=== PATIENT | male | born 1935 | race Caucasian/White ===

== ENCOUNTER 2017-01-04 09:51 | Inpatient (IN) | payer MEDICARE, OTHER ==
[2017-01-04] VITALS (25 sets, daily range): BP systolic 53–161; BP diastolic 24–99; BMI 29.4
[~2017-01-04] VITALS: Ht 190.5 cm; Wt 108.2 kg
[2017-01-04 10:21] LABS: BASOPHILS 0.3 % (0-2); EOSINOPHILS 0.8 % (0-7); HEMATOCRIT 22.3 % (42.0-54.0); IMMATURE GRANULOCYTES 0.5 % (0-5); LYMPHOCYTES 14.5 % (15-50); MCH 33.9 pg (26.0-34.0); MCHC 33.2 g/dL (31.0-37.0); MCV 102.3 fL (80.0-100.0); MEAN PLATELET VOLUME 10.9 fL (7.4-10.4); MONOCYTES 7.5 % (2-11); NEUTROPHILS 76.4 % (40-80); RBC 2.18 10x6/uL (4.20-6.10); RDW 13.3 % (11.5-14.5); WBC 9.3 10x3/uL (4.8-10.8)
[2017-01-04 10:32] LABS: HEMOGLOBIN 7.4 g/dL (13.5-17.5); PLATELET COUNT 180 10x3/uL (130-400)
[2017-01-04 10:35] LABS: APTT 45.3 SECONDS (22.8-39.4); INR 1.76 (0.85-1.17); PROTIME 20.5 SECONDS (11.6-15.0)
[2017-01-04 10:40] LABS: ALBUMIN 2.7 g/dL (3.4-5.0); ANION GAP 13.5 mmol/L (8-16); BILIRUBIN - TOTAL 0.5 mg/dL (0.2-1.3); CALCIUM 8.2 mg/dL (8.5-10.1); CARBON DIOXIDE 21.1 mmol/L (21.0-32.0); CREATININE - SERUM 2.2 mg/dL (0.6-1.3); POTASSIUM - SERUM 5.6 mmol/L (3.5-5.1)
[2017-01-04 14:49] LABS: BASOPHILS 0.1 % (0-2); EOSINOPHILS 0.1 % (0-7); HEMATOCRIT 20.3 % (42.0-54.0); IMMATURE GRANULOCYTES 0.7 % (0-5); LYMPHOCYTES 22.7 % (15-50); MCH 32.1 pg (26.0-34.0); MCV 103.6 fL (80.0-100.0); MEAN PLATELET VOLUME 10.9 fL (7.4-10.4); MONOCYTES 4.2 % (2-11); NEUTROPHILS 72.2 % (40-80); RDW 14.9 % (11.5-14.5); WBC 11.2 10x3/uL (4.8-10.8)
[2017-01-04 14:51] LABS: HEMOGLOBIN 6.3 g/dL (13.5-17.5); PLATELET COUNT 138 10x3/uL (130-400); RBC 1.96 10x6/uL (4.20-6.10)
--- NOTE | 2017-01-04 15:04 | NUR ---
3 CC EPINEPHRINE INJECTED INTO DUODENAL ULCER DURING EGD
[2017-01-04 15:58] LABS: BASOPHILS 0.1 % (0-2); EOSINOPHILS 0.3 % (0-7); IMMATURE GRANULOCYTES 0.8 % (0-5); LYMPHOCYTES 16.4 % (15-50); MCH 32.4 pg (26.0-34.0); MCHC 33.2 g/dL (31.0-37.0); MEAN PLATELET VOLUME 11.2 fL (7.4-10.4); MONOCYTES 9.4 % (2-11); RDW 14.6 % (11.5-14.5)
[2017-01-04 15:59] LABS: HEMATOCRIT 27.7 % (42.0-54.0); HEMOGLOBIN 9.2 g/dL (13.5-17.5); MCV 97.5 fL (80.0-100.0); PLATELET COUNT 176 10x3/uL (130-400); RBC 2.84 10x6/uL (4.20-6.10); WBC 18.9 10x3/uL (4.8-10.8)
[2017-01-04 16:07] LABS: APTT 47.7 SECONDS (22.8-39.4); PROTIME 22.7 SECONDS (11.6-15.0)
--- NOTE | 2017-01-04 16:16 | NUR ---
1616 REC'D PT AT 1406- PT ARRIVED TO ICU, VERY PALE, ANSWERS QUESTIONS. ALL MONITORING EQUIPMENT ATTACHED AND ALARMS SET. PT HYPOTENSIVE, 1ST UNIT PRBC INCREASED RATE, NS BOLUS 999CC/HR BEGAN AND PAGED DR SEGUNDO. PT WENT UNRESPONSIVE. CODE BLUE CALLED. ACLS BEGAN WITH BVM 100% O2. SPONTANEOUS RESP AND PULSE PRESENT AFTER FEW COMPRESSIONS AND 2MIN BVM. GI LAB TEAM CALLED AND SURGERY CALLED. DR SEGUNDO AT . PT INTUBATED BY ANESTHESIA AND UGI PROCEDURE IN PROGRESS. 4U PRBC GIVEN AND 1 UNIT PLATELETTES GIVEN. PT CONTINUES TO BE HYPOTENSIVE BUT TRASHING AROUND, VASOPRESSIN BEGAN AND DIPROVAN TITRATED.
--- NOTE | 2017-01-04 16:34 | NUR ---
IN ICU. PT'S VSS AND RESTING QUIETLY. DR SEGUNDO AND DR GREGORY SPOKE TO PT'S .
[2017-01-04 17:49] LABS: HEMATOCRIT 28.2 % (42.0-54.0); HEMOGLOBIN 9.4 g/dL (13.5-17.5)
[2017-01-04 18:29] LABS: CKMB 2.7 U/L (0.0-3.6); CREATINE KINASE 18 UL (21-232); TROPONIN-I 0.047 ng/mL (0.000-0.060)
--- NOTE | 2017-01-04 18:52 | NUR ---
L CHEST CVL PLACED BY DR LOUIS, CONCENTS BY PT'S . PT TEMP 96.0, BEAR HUGGER PLACED TO WARM. CXR COMPLETE.
--- NOTE | 2017-01-04 19:10 | NUR ---
Received patient sedated in bed on vent, assessment completed per flowsheet. Patient opens eyes and withdraws from pain stimuli, moves extremities. Eyes PERRLA @ 4mm with brisk response, sclera is reddened. ETT 8.0 @ 25cm, OGT to LIWS. S1/S2 noted NSR on telemetry with HR 74, rhythmic and regular. Lung sounds clear bilateral upper and mid with diminished lower, Vent settings A/C R-20 V-600 40% P-7 with O2 sat 99%. Abdomen is round and soft with bowel sounds hypoactive x4, non-tender. Elmore secured in place with clear yellow urine noted in collection, dark blood from rectum noted on pad. Full ROM all extremities with slight weakness noted, all pulses palpable with cap refill < 3 sec. L subclavian CVL noted, patent with fluids infusing. 20g PIV noted L hand/L AC patent with fluids infusing, 20g PIV R hand/R Forearm patent and saline locked. Unable to assess pain at this time. Oral care/suctioning provided, patient repositioned for comfort. No further needs at this time, all VSS and will continue to monitor.
--- NOTE | 2017-01-04 21:00 | NUR ---
No visitors at this time, patient sedated in bed on vent. Full bed bath/linen change performed, small dark red blood noted from rectum. Oral care/suctioning provided, patient repostioned. No further needs at this time, all VSS and will continue to monitor.
--- NOTE | 2017-01-04 21:30 | NUR ---
CVP set up, zeroed with good reading.
--- NOTE | 2017-01-04 22:15 | NUR ---
Spoke to Ghazal (Daughter) via telephone, updated on patient status. All questions answered to satisfaction, no further questions at this time.
[2017-01-04 22:52] LABS: HEMATOCRIT 23.9 % (42.0-54.0); HEMOGLOBIN 8.4 g/dL (13.5-17.5)
--- NOTE | 2017-01-04 23:15 | NUR ---
!ST UNIT PRBC STARTED INFUSING, WILL MONITOR FOR S/S OF REACTION.
[2017-01-05] VITALS (35 sets, daily range): BP systolic 87–142; BP diastolic 46–75; Ht 190.5 cm; Wt 108.2 kg
[2017-01-05 00:33] LABS: CKMB 1.4 U/L (0.0-3.6); CREATINE KINASE 70 UL (21-232)
[2017-01-05 00:34] LABS: TROPONIN-I 0.089 ng/mL (0.000-0.060)
--- NOTE | 2017-01-05 01:00 | NUR ---
1st Unit PRBC's completed. Patient afebrile, BP 130/57 with HR 67. No s/s of transfusion reaction at this time.
--- NOTE | 2017-01-05 01:15 | NUR ---
2nd Unit PRBC's started infusing, will monitor for s/s of transfusion reaction.
--- NOTE | 2017-01-05 03:00 | NUR ---
2nd Unit PRBC's completed, HR 98 and B/P 111/56. No s/s of transfusion reaction, will continue to monitor.
--- NOTE | 2017-01-05 03:10 | NUR ---
Reassessment completed per flowsheet, patient sedated in bed on vent. Patient opens eyes spontaneously and follows commands, eyes PERRLA @ 4mm with brisk response. S1/S2 noted NSR on telemetry with HR 98, rhythmic and regular. Vent settings unchanged from previous assessment, lung sounds clear bilateral upper and mid with diminished lower. All pulses palpable with cap refill < 3 sec, skin cool/dry to touch. Denies pain or other needs at this time, all VSS and will continue to monitor.
--- NOTE | 2017-01-05 05:00 | NUR ---
Patient resting in bed with eyes closed, Vent settings remain unchanged from previous assesment. Patient denies pain or other needs at this time, all VSS and will continue to monitor.
[2017-01-05 05:07] LABS: BASOPHILS 0.1 % (0-2); EOSINOPHILS 0 % (0-7); HEMATOCRIT 27.6 % (42.0-54.0); HEMOGLOBIN 9.8 g/dL (13.5-17.5); IMMATURE GRANULOCYTES 0.3 % (0-5); MCH 32.8 pg (26.0-34.0); MCHC 35.5 g/dL (31.0-37.0); MEAN PLATELET VOLUME 11.2 fL (7.4-10.4); MONOCYTES 4.8 % (2-11); NEUTROPHILS 88.8 % (40-80); RBC 2.99 10x6/uL (4.20-6.10); RDW 14.9 % (11.5-14.5)
[2017-01-05 05:08] LABS: MCV 92.3 fL (80.0-100.0); PLATELET COUNT 123 10x3/uL (130-400); WBC 11.5 10x3/uL (4.8-10.8)
[2017-01-05 05:09] LABS: INR 1.61 (0.85-1.17); PROTIME 19.1 SECONDS (11.6-15.0)
[2017-01-05 05:10] LABS: APTT 40.2 SECONDS (22.8-39.4)
--- NOTE | 2017-01-05 05:30 | NUR ---
H&H results returned, 2 units to be infused per orders. 1st unit PRBC's infusing, will monitor for s/s of transfusion reaction.
[2017-01-05 05:40] LABS: ALBUMIN 2.4 g/dL (3.4-5.0); ALKALINE PHOSPHATASE 42 U/L (46-116); ALT (SGPT) 20 U/L (10-68); AMYLASE - SERUM 91 U/L (25-115); BILIRUBIN - TOTAL 1.12 mg/dL (0.2-1.3); CHLORIDE - SERUM 109 mmol/L (98-107); CKMB 1.9 U/L (0.0-3.6); CREATINE KINASE 86 UL (21-232); CREATININE - SERUM 2.4 mg/dL (0.6-1.3); LIPASE 56 U/L (73-393); MAGNESIUM - SERUM 1.5 mg/dL (1.8-2.4); PHOSPHOROUS 4.2 mg/dL (2.5-4.9); POTASSIUM - SERUM 4.4 mmol/L (3.5-5.1); PROTEIN - SERUM 4.5 g/dL (6.4-8.2); SODIUM 139 mmol/L (136-145); THYROID STIMULATING HORMONE 0.65 uIU/mL (0.36-3.74); UREA NITROGEN 68 mg/dL (7-18); eGFR NON AFRICAN AMERICAN 28 mL/min (90-120)
[2017-01-05 05:42] LABS: CALC OSMOLALITY 307 mosm/kg (275-300); CARBON DIOXIDE 13.7 mmol/L (21.0-32.0); GLUCOSE 284 mg/dL (74-106); TROPONIN-I 0.255 ng/mL (0.000-0.060)
--- NOTE | 2017-01-05 07:00 | NUR ---
2nd unit PRBC completed, patient HR 80 and B/P 106/52. No s/s of transfusion reaction at this time, all VSS and will continue to monitor.
--- NOTE | 2017-01-05 08:19 | NUR ---
VERSED GIVEN FOR SEDATION PATIENT WAS VERY RESTLESS IN BED. VS WITHIN NORMAL LIMITS AT THIS TIME. SPO2 99%.
--- NOTE | 2017-01-05 10:10 | NUR ---
DIPRIVAN INCREASED TO 80MCG/KG/MIN. PATIENT IS RESTLESS IN BED AND AROUSING TO VOICE.
--- NOTE | 2017-01-05 10:17 | NUR ---
DR. SEGUNDO CALLED FOR UPDATE ON PATIENT. DR. GREGORY AND DR. QUEEN HERE IN TO SEE PATIENT.
[2017-01-05 10:51] LABS: HEMATOCRIT 29.2 % (42.0-54.0); HEMOGLOBIN 10.3 g/dL (13.5-17.5)
--- NOTE | 2017-01-05 11:10 | NUR ---
HAND ROLLER IN ROOM FOR ECHO AT THIS TIME.
--- NOTE | 2017-01-05 13:14 | NUR ---
TOOK PATIENTS [place] [employer] HOME WITH HER. PAPER SIGNED.
--- NOTE | 2017-01-05 15:00 | NUR ---
JESUS CARE COMPLETE. PATIENT IS RELAXED AND AROUSES EASILY TO VERBAL STIMULI.
[2017-01-05 16:30] LABS: HEMATOCRIT 28.4 % (42.0-54.0)
--- NOTE | 2017-01-05 17:10 | NUR ---
PATIENT HAD SMALL LEAKAGE OF SEROUS FLUID AND DARK RED CONTENT INCONTENT BM.
--- NOTE | 2017-01-05 19:10 | NUR ---
Received patient sedated in bed on vent, assessment completed per flowsheet. Patient opens eyes and withdraws from pain stimuli, sedated. Eyes PERRLA @ 4mm with brisk response, sclera is reddened. ETT 8.0 @ 25cm, OGT to LIWS secured. S1/S2 noted NSR on telemetry with HR 81, rhythmic and regular. Lung sounds clear bilateral upper and mid with diminished lower, Vent settings SIMV R-16 V-600 30% P-5 PS-15. Abdomen is round and soft with bowel sounds hypoactive x4, non-tender. Elmore secured in place with clear yellow urine noted. Passive ROM all extremities with weakness noted, all pulses palpable with cap refill < 3 sec. L subclavian CVL dressing CDI, NS @ 75ml/hr / Diprivan @ 80mcg/kg/min / Protonix @ 10ml/hr infusing. CVP connected, 7mm/hg and zeroed. Oral care/suctioning provided, patient repositioned for comfort. No further needs at this time, all VSS and will continue to monitor.
--- NOTE | 2017-01-05 21:00 | NUR ---
No visitors at this time, all HS meds given without difficulty. Oral care/suctioning provided, patient repositioned for comfort. No further needs at this time, all VSS and will continue to monitor.
--- NOTE | 2017-01-05 22:15 | NUR ---
Spoke to Ghazal (daughter) via phone, updated on patient status. All questions answered to satisfaction, no further questions at this time.
[2017-01-05 22:45] LABS: HEMATOCRIT 26.9 % (42.0-54.0); HEMOGLOBIN 9.4 g/dL (13.5-17.5)
--- NOTE | 2017-01-05 23:00 | NUR ---
Reassessment completed per flowsheet, patient laying in bed sedated on vent. Eyes PERRLA @ 4mm with brisk response, sclera is white. S1/S2 noted NSR on telemetry with HR 84, rhythmic and regular. Lung sounds clear bilateral upper and mid with diminished lower, Vent settings unchanged from previous assessment with O2 sat 99%. All pulses palpable with cap refill < 3 sec, skin warm/dry to touch. Oral care/suctioning provided, patient repositioned for comfort. No further needs at this time, all VSS and will continue to monitor.
--- NOTE | 2017-01-05 23:30 | NUR ---
Spoke to Sue () via phone, updated on patient status. Discussed ventilator weaning procedures, all question answered to satisfaction.
[2017-01-06] VITALS (33 sets, daily range): BP systolic 97–149; BP diastolic 53–90
--- NOTE | 2017-01-06 01:00 | NUR ---
H&H 9.4/26.9, 1 unit PRBC initiated per orders. Will monitor for s/s of transfusion reaction.
--- NOTE | 2017-01-06 02:30 | NUR ---
2nd unit PRBC initiated, will monitor for s/s of transfusion reaction.
--- NOTE | 2017-01-06 02:30 | NUR ---
1st unit PRBC completed, HR 86 and B/P 120/59. No s/s of transfusion reaction, will continue to monitor.
--- NOTE | 2017-01-06 03:10 | NUR ---
Reassessment completed per flowsheet, patient sedated in bed on Vent. Eyes PERRLA @ 4mm with brisk response, sclera is slightly reddened. S1/S2 noted NSR on telemetry with HR 85, rhythmic and regular. Lung sounds clear bilateral upper and mid with diminished lower, Vent settings unchanged from previous assessment. All pulses palpable with cap refill < 3 sec, skin warm/dry to touch. Oral care/suctioning provided, patient repositioned for comfort. No further needs at this time, all VSS and will continue to monitor.
--- NOTE | 2017-01-06 04:00 | NUR ---
2nd unit PRBC completed, HR 82 and B/P 138/68. No s/s of transfusion reaction, will continue to monitor.
[2017-01-06 04:49] LABS: BASOPHILS 0.1 % (0-2); EOSINOPHILS 1.1 % (0-7); HEMATOCRIT 30.7 % (42.0-54.0); HEMOGLOBIN 10.7 g/dL (13.5-17.5); IMMATURE GRANULOCYTES 0.5 % (0-5); LYMPHOCYTES 9.6 % (15-50); MCH 31.5 pg (26.0-34.0); MCHC 34.9 g/dL (31.0-37.0); MEAN PLATELET VOLUME 11.2 fL (7.4-10.4); MONOCYTES 6.9 % (2-11); NEUTROPHILS 81.8 % (40-80); PLATELET COUNT 107 10x3/uL (130-400)
[2017-01-06 04:52] LABS: MCV 90.3 fL (80.0-100.0); WBC 8.6 10x3/uL (4.8-10.8)
[2017-01-06 04:58] LABS: PROTIME 15.3 SECONDS (11.6-15.0)
--- NOTE | 2017-01-06 05:00 | NUR ---
Patient laying in bed sedated on vent, full bed bath/linen change performed. Patient repositioned for comfort, oral care/suctioning provided. No further needs at this time, all VSS and will continue to monitor.
[2017-01-06 05:18] LABS: ALBUMIN 2.2 g/dL (3.4-5.0); BILIRUBIN - TOTAL 0.7 mg/dL (0.2-1.3); CALCIUM 7.2 mg/dL (8.5-10.1); CREATININE - SERUM 1.9 mg/dL (0.6-1.3); HEMOGLOBIN A1C 6.1 % (4.8-6.0); POTASSIUM - SERUM 3.9 mmol/L (3.5-5.1); PROTEIN - SERUM 4.6 g/dL (6.4-8.2)
[2017-01-06 05:19] LABS: ANION GAP 14.1 mmol/L (8-16); CARBON DIOXIDE 20.8 mmol/L (21.0-32.0); TROPONIN-I 0.357 ng/mL (0.000-0.060)
[2017-01-06 05:31] LABS: APTT 25.2 SECONDS (22.8-39.4); INR 1.22 (0.85-1.17)
--- NOTE | 2017-01-06 09:17 | NUR ---
DIPRIVAN IS TURNED OFF. PATIENT IS ON CPAP PER RESPIRATORY.
--- NOTE | 2017-01-06 09:55 | NUR ---
* Is the patient Alert and Oriented? Yes 0 * How many steps to enter\exit or inside your home? 2 0 * PCP Dr. Leach 0 * [facility] * Preadmission Environment Home with Family 0 * ADLs Independent 0 * List name and contact numbers for known caregivers / representatives who currently or will assist patient after discharge: Spouse - Sue [phone] 0 * Additional services required to return to the preadmission environment? No 0 * Can the patient safely return to the preadmission environment? Yes 0 * Has this patient been hospitalized within the prior 30 days at any hospital? No Patient Name: GO MARRUFO Admission Status: ER Accout number: [id number] Admission Date: 01-04-2017 : 1935 Admission Diagnosis:GASTROINTESTINAL HEMORRHAGE, UNSPECIFIED Attending: BRET Current LOS: 2 Planned Disposition: Home Primary Insurance: MEDICARE A & B Discharge Planning Comments: CM met with spouse, Sue, & daughter at bedside. Prior to admission, patient was living at home with his . He was independent with all ADL's & IADL's. He has not had home health services in the past. At me, he will return home with his family. They are agreeable to home health services if needed. CM will follow & assist as needed. Voltage Tester: Mireille Mazariegos
--- NOTE | 2017-01-06 09:58 | NUR ---
DR. QUEEN HERE IN TO SEE PATIENT, AT BEDSIDE ALSO.
[2017-01-06 10:33] LABS: HEMATOCRIT 30.9 % (42.0-54.0); HEMOGLOBIN 10.8 g/dL (13.5-17.5)
--- NOTE | 2017-01-06 10:36 | NUR ---
DR. GREGORY HERE IN TO SEE PATIENT NEW ORDERS RECEIVED.
--- NOTE | 2017-01-06 11:08 | NUR ---
RESPIRATORY IN ROOM WITH PATIENT PREPARING FOR EXTUBATION SOON.
--- NOTE | 2017-01-06 11:15 | NUR ---
PATIENT WAS EXTUBATED AT THIS TIME. DR. GREGORY AND RESPIRATORY THERAPY IN ROOM WITH PATIENT.
--- NOTE | 2017-01-06 12:23 | NUR ---
PATIENT IS DOING WELL AT THIS TIME. V/S WITHIN NORMAL LIMITS. CALL LIGHT WITHIN REACH, BED IN LOW POSITION. RESPIRATIONS ARE UNLABORED, AND EVEN.
--- NOTE | 2017-01-06 13:44 | NUR ---
PATIENT IS SLEEPING, AROUSES EASILY TO VERBAL STIMULI. RESPIRATIONS EVEN AND UNLABORED. SPO2 98%
[2017-01-06 16:15] LABS: HEMATOCRIT 31.9 % (42.0-54.0); HEMOGLOBIN 11.2 g/dL (13.5-17.5)
--- NOTE | 2017-01-06 18:30 | NUR ---
PATIENT BATHED LINEN CHANGE COMPLETE. PATIENT TOLERATED WELL. CALL LIGHT WITHIN REACH.
--- NOTE | 2017-01-06 19:00 | NUR ---
Received patient resting in bed with eyes open watching TV, assessment completed per flowsheet. Patient AO x4, calm and cooperative. Eyes PERRLA @ 4mm with brisk response, sclera is white. S1/S2 noted NSR on telemetry with HR 97, rhythmic and regular. Breathing is slightly shallow and unlabored on 3L via NC with O2 sat 99%, lung sounds clear throughout all lobes. Abdomen is round and soft with bowel sounds active x4, non-tender. Elmore secured in place, clear yellow urine noted in collection. Full ROM all extremities with all pulses palpable, skin warm/dry to touch with cap refill < 3 sec. L subclavian CVL dressing CDI, patent with NS @ 75ml/hr / Protonix @ 10ml/hr infusing. Patient denies pain or other needs at this time, all VSS and will continue to monitor.
[2017-01-06 22:03] LABS: HEMATOCRIT 29.7 % (42.0-54.0); HEMOGLOBIN 10.4 g/dL (13.5-17.5)
--- NOTE | 2017-01-06 23:00 | NUR ---
Reassessment completed per flowsheet, patient resting in bed with eyes closed. Patient AO x4, calm and cooperative. S1/S2 noted NSR on telemetry with HR 78, rhythmic and regular. Breathing slightly shallow and unlabored on 3L via NC with O2 sat 98%, lung sounds clear throughout all lobes. All pulses palpable with cap refill < 3 sec, skin is warm/dry to touch. Patient repositioned for comfort, denies pain or other needs at this time. All VSS and will continue to monitor.
[2017-01-07] VITALS (13 sets, daily range): BP systolic 119–166; BP diastolic 53–81
--- NOTE | 2017-01-07 00:50 | NUR ---
Patient requested bedpan, large black stool passed. Patient cleaned and repositioned, no further needs at this time.
--- NOTE | 2017-01-07 01:00 | NUR ---
Patient resting in bed with eyes closed, full bed bath/linen change performed. Patient denies pain or other needs at this time, all VSS and will continue to monitor.
--- NOTE | 2017-01-07 03:00 | NUR ---
Reasessment completed per flowsheet, patient resting in bed with eyes closed and Radiology at bedside. Patient AO x4, calm and cooperative. S1/S2 noted NSR on telemetry with HR 83, rhythmic and regular. Breathing is slightly shallow and unlabored on 3L via NC with O2 sat 97%, lung sounds clear throughout all lobes. Abdomen is round and soft, no fresh blood noted from rectum. All pulses palpable with cap refill < 3 sec, skin warm/dry to touch. Patient denies pain or other needs at this time, all VSS and will continue to monitor.
--- NOTE | 2017-01-07 05:00 | NUR ---
AM labs collected without difficulty, patient resting in bed with eyes closed. Denies pain or other needs at this time, all VSS and will continue to monitor.
--- NOTE | 2017-01-07 05:10 | NUR ---
Patient had BM in bed, liquid brown/dark stool passed. Cleaned and linen changed, no further needs at this time.
[2017-01-07 05:19] LABS: BASOPHILS 0.1 % (0-2); EOSINOPHILS 1.2 % (0-7); HEMATOCRIT 29.5 % (42.0-54.0); HEMOGLOBIN 10.3 g/dL (13.5-17.5); IMMATURE GRANULOCYTES 0.4 % (0-5); LYMPHOCYTES 10.8 % (15-50); MCH 31.9 pg (26.0-34.0); MCHC 34.9 g/dL (31.0-37.0); MCV 91.3 fL (80.0-100.0); MEAN PLATELET VOLUME 10.9 fL (7.4-10.4); MONOCYTES 7.5 % (2-11); PLATELET COUNT 110 10x3/uL (130-400); RBC 3.23 10x6/uL (4.20-6.10); RDW 16.5 % (11.5-14.5); WBC 7.7 10x3/uL (4.8-10.8)
[2017-01-07 05:32] LABS: INR 1.14 (0.85-1.17); PROTIME 14.5 SECONDS (11.6-15.0)
[2017-01-07 05:34] LABS: D-DIMER-QUANTITATIVE 0.93 ug/mLFEU (0.20-0.54)
--- NOTE | 2017-01-07 05:50 | NUR ---
Patient had BM in bed, liquid brown/drak stool passed. Cleaned and linen changed, no further needs at this time.
[2017-01-07 06:08] LABS: ALBUMIN 2.3 g/dL (3.4-5.0); BILIRUBIN - TOTAL 1.2 mg/dL (0.2-1.3); C-REACTIVE PROTEIN 10.5 mg/dL (0.0-0.9); CALCIUM 7.9 mg/dL (8.5-10.1); CARBON DIOXIDE 25.4 mmol/L (21.0-32.0); CREATININE - SERUM 1.5 mg/dL (0.6-1.3); MAGNESIUM - SERUM 2.1 mg/dL (1.8-2.4); PHOSPHOROUS 2.7 mg/dL (2.5-4.9)
[2017-01-07 06:10] LABS: ANION GAP 11.6 mmol/L (8-16); TROPONIN-I 0.32 ng/mL (0.000-0.060)
--- NOTE | 2017-01-07 07:35 | NUR ---
PT AWAKE AND ALERT. BREATHING TREATMENT IN PROGRESS AT THIS TIME. REPORTS NO PAIN AT THIS TIME. LUNGS ARE CLEAR THROUGH OUT. ON 2L OF O2 VIA NC. TELEMETRY WITH HR OF 73 SYNUS RHYTHM. BS HYPERACTIVE X 4. STATES THAT HE IS HUNGRY. JESUS DEPENDENT TO LEFT SIDE OF THE BED. YELLOW URINE NOTED. L-SUBCLAVIAN CVL WITH BICARB INFUSING AT 50ML/HR, PROTONIX DRIP AT 10ML/HR, AND KCL RIDERS. BED IS IN LOW POSITION. CALL LIGHT IN REACH. NO OTHER NEEDS AT THIS TIME. REST OF ASSESSMENT CHARTED IN ASSESSMENT CHART.
--- NOTE | 2017-01-07 09:00 | NUR ---
TURNED AND REPOSITIONED ONTO LEFT SIDE. ENCOURAGED PT TO CHANGE POSITIONS OFTEN TO HELP PREVENT PRESSURE ULCERS. NO OTHER NEEDS AT THIS TIME.
--- NOTE | 2017-01-07 09:57 | NUR ---
Nutrition Follow Up: Chart reviewed. Pt extubated 01/06/17. Swallow eval ordered and diet can adv as tolerated per surgery. +BM 01/07/17. Labs and meds reviewed. Rec advancing LITZY per LEASES AND LAND SUPERVISOR recs when feasible. RD following.
--- NOTE | 2017-01-07 10:33 | NUR ---
PHYSICAL THERAPY ASSESSED PT. STATED THAT PT NEEDS PARTIAL ASSISTANCE WHEN GETTING UP. ABLE TO GET UP TO BEDSIDE COMODE WITH ASSISTANCE DUE TO IV LINES AND CATHETER.
--- NOTE | 2017-01-07 11:00 | NUR ---
PT SITTING ON THE SIDE OF THE BED. ASSISTED BACK ON HIS BACK. COMPLETE BATH GIVEN. RECTAL LEAKAGE NOTED BLACK/BROWN IN COLOR. PERICARE AND JESSU CARE PROVIDED. COMPLETE BED CHANGE AND CLEAN GOWN PROVIDED. PT PULLED UP IN BED. SCD'S ON BOTH LEGS. WILL CONTINUE TO MONITOR.
--- NOTE | 2017-01-07 11:54 | NUR ---
PT HAD BM AT AROUND 1145. BROWN LIQUID STOOL. NO BLOOD NOTED. WILL CONTINUE TO MONITOR.
--- NOTE | 2017-01-07 13:00 | NUR ---
BEDPAN PROVIDED. DARK BROWN LIQUID STOOL NOTED. NO BLOOD NOTED. BED PAD CHANGED. PT PULLED UP AND REPOSITIONED. CVP OF 9. PT DENIES NEEDS AT THIS TIME.
--- NOTE | 2017-01-07 14:01 | NUR ---
POTASSIUM CHECK WAS 3.5. PER ELECTROLYTE PROTOCOL WILL GIVE 20MEQ X 2 VIA CENTRAL LINE.
--- NOTE | 2017-01-07 15:32 | NUR ---
SECOND 20MEQ OF KCL INFUSING. ASSISTED PT TO SIDE OF BED. PT TOLERATED WELL. FAMILY IN ROOM. PT DENIES OTHER NEEDS AT THIS TIME.
--- NOTE | 2017-01-07 16:00 | NUR ---
RASH NOTED ON HIS BACK. BUTT PASTE APPLIED TO HELP REDUCE MOISTURE. NO OTHER NEEDS AT THIS TIME.
--- NOTE | 2017-01-07 17:53 | NUR ---
PT WILL BE TRANSFERRED TO MED SURG ROOM 8338. REPORT CALLED. PT STILL CONCERNED ABOUT RASH ON BACK. HE STATES THAT IT DOESN'T ITCH OR HURT. APPLIED SOME MORE BUTT PASTE. WILL CONTINUE TO MONITOR.
--- NOTE | 2017-01-07 22:03 | NUR ---
REC'D FROM THE ICU. ALERT AND ORIENTED X4. DENIED PAIN AT THIS TIME. IS WANTING AND AMBEIN FOR SLEEP. WILL CALL DOC TO GET THE ORDER. NO DISTRESS NOTED. INSTRUCTED TO CALL IF NEEDED ANYTHING, VERBALOZED UNDERSTANDING. DAUGHTER IS AT BEDSIDE. WILL CONT TO MONITOR. BED LOW, LOCKED, CALL LIGHT IN REACH.
--- NOTE | 2017-01-08 04:00 | NUR ---
PT INCONTINENT OF STOOL WHEN COUGHS. GOWN AND LINEN CHANGED. CONTINUE WELDER APPRENTICE COMBINATION'S PLAN OF CARE.
[2017-01-08 04:41] LABS: BASOPHILS 0.1 % (0-2); EOSINOPHILS 2.2 % (0-7); HEMATOCRIT 30.2 % (42.0-54.0); HEMOGLOBIN 10.2 g/dL (13.5-17.5); IMMATURE GRANULOCYTES 0.4 % (0-5); LYMPHOCYTES 9.7 % (15-50); MCH 31.8 pg (26.0-34.0); MCHC 33.8 g/dL (31.0-37.0); MEAN PLATELET VOLUME 11.5 fL (7.4-10.4); MONOCYTES 9.7 % (2-11); NEUTROPHILS 77.9 % (40-80); PLATELET COUNT 115 10x3/uL (130-400); RBC 3.21 10x6/uL (4.20-6.10); RDW 16.7 % (11.5-14.5); WBC 6.9 10x3/uL (4.8-10.8)
[2017-01-08 04:54] LABS: MCV 94.1 fL (80.0-100.0)
[2017-01-08 04:59] LABS: ALBUMIN 2.2 g/dL (3.4-5.0); ANION GAP 10.7 mmol/L (8-16); BILIRUBIN - TOTAL 1.16 mg/dL (0.2-1.3); CALCIUM 7.5 mg/dL (8.5-10.1); CARBON DIOXIDE 24.6 mmol/L (21.0-32.0); CREATININE - SERUM 1.3 mg/dL (0.6-1.3); MAGNESIUM - SERUM 2.2 mg/dL (1.8-2.4); PHOSPHOROUS 1.9 mg/dL (2.5-4.9); POTASSIUM - SERUM 3.3 mmol/L (3.5-5.1); PROTEIN - SERUM 5.2 g/dL (6.4-8.2); URIC ACID 5.1 mg/dL (2.6-7.2)
--- NOTE | 2017-01-08 06:41 | NUR ---
COMPLAING OF SOB. RAISED HOB AND PLACE 3L OF O2 VIA NC. WAS SATING 85 WENT UP TO 91. CONTACTED RESP AND INFORMED HER.
--- NOTE | 2017-01-08 07:03 | NUR ---
REPORT RECIEVED, ASSUMED CARE OF PT. RESTING IN ROOM, DAUGHTER AT BEDSIDE. SCD'S IN PLACE BILATERALLY. JESUS CATHETER IN PLACE. L SUBCLAVIAN IV INFUSING ORDERED, DRSG C/D/I. 3 L O2 VIA NASAL CANNULA. NO NEEDS VOICED AT THIS TIME. BED IN LOWEST POSITION, SIDE RAILS UP X 2, CALL LIGHT WITHIN REACH.
[2017-01-08] MEDS ORDERED: LIPITOR80 MG (10:02)
[2017-01-08] MEDS ORDERED: TOPROL XL100 MG (10:03)
[2017-01-08] MEDS ORDERED: DIOVAN160 MG (10:03)
[2017-01-08] MEDS ORDERED: AVODART0.5 MG PO (10:04)
[2017-01-08] MEDS ORDERED: AMBIEN10 MG (10:04)
[2017-01-08] MEDS ORDERED: PRADAXA150 MG (10:05)
[2017-01-08] MEDS ORDERED: CIMETIDINE200 MG PO (10:05)
[2017-01-08] MEDS ORDERED: BACTROBAN NASAL1 GM TOPICAL (10:06)
[2017-01-08] MEDS ORDERED: MOBIC7.5 MG PO (10:06)
--- NOTE | 2017-01-08 14:54 | NUR ---
DR. QUEEN NOTIFIED OF PT ELEVATED B/P, ORDERED TO RE-START VALSARTAN AND METOPROLOL FROM HOME MED LIST.
[2017-01-08 16:46] VITALS: BP 141/65
--- NOTE | 2017-01-08 18:56 | NUR ---
SPOKE WITH ALEK FROM LAB, PT HAS POSITIVE ANTIGEN FOR C.DIFF. ENTERIC PRECAUTIONS IN PLACE.
--- NOTE | 2017-01-08 19:45 | NUR ---
PATIENT RESTING IN BED WITH AT BEDSIDE AND NO VISIBLE SIGNS OF DISTRESS. BED IN LOWEST POSITION, CALL LIGHT WITHIN REACH, AND BED ALARM ON. ENCOUARAGED THE PATIENT TO CALL IF HE HAS NEEDS.
[2017-01-09 00:04] VITALS: BP 144/77
[2017-01-09 04:00] VITALS: BP 161/75
--- NOTE | 2017-01-09 07:00 | NUR ---
RECEIVED REPORT, ASSUMED CARE OF PT. ENTERIC PRECAUTIONS IN PLACE. RESTING IN BED WITH FAMILY AT BEDSIDE. BILATERAL SCD'S IN PLACE. L SUBCLAVIAN IN PLACE, INFUSING FLUIDS ORDERED. BED IN LOWEST POSITION, SIDE RAILS UP X 2, CALL LIGHT WITHIN REACH.
[2017-01-09 07:43] LABS: BASOPHILS 0 % (0-2); EOSINOPHILS 0 % (0-7); HEMATOCRIT 31.8 % (42.0-54.0); HEMOGLOBIN 10.7 g/dL (13.5-17.5); IMMATURE GRANULOCYTES 0.8 % (0-5); LYMPHOCYTES 5.3 % (15-50); MCH 31.6 pg (26.0-34.0); MCHC 33.6 g/dL (31.0-37.0); MCV 93.8 fL (80.0-100.0); MEAN PLATELET VOLUME 10.6 fL (7.4-10.4); MONOCYTES 3.6 % (2-11); NEUTROPHILS 90.3 % (40-80); PLATELET COUNT 151 10x3/uL (130-400); RBC 3.39 10x6/uL (4.20-6.10); RDW 15.7 % (11.5-14.5); WBC 8.3 10x3/uL (4.8-10.8)
[2017-01-09 08:04] LABS: ALBUMIN 2.6 g/dL (3.4-5.0); ANION GAP 14.6 mmol/L (8-16); BILIRUBIN - TOTAL 0.7 mg/dL (0.2-1.3); CALCIUM 8.5 mg/dL (8.5-10.1); CARBON DIOXIDE 24.1 mmol/L (21.0-32.0); CREATININE - SERUM 1.5 mg/dL (0.6-1.3); MAGNESIUM - SERUM 2.2 mg/dL (1.8-2.4); POTASSIUM - SERUM 3.7 mmol/L (3.5-5.1); PROTEIN - SERUM 6.5 g/dL (6.4-8.2)
[2017-01-09 08:06] LABS: PHOSPHOROUS 2.6 mg/dL (2.5-4.9)
[2017-01-09 08:43] LABS: ERYTHROCYTE SEDIMENTATION RATE 62 mm/hr (0-20)
[2017-01-09 09:20] VITALS: BP 172/82
[2017-01-09 12:31] VITALS: BP 115/73
[2017-01-09 16:05] VITALS: BP 178/86
[2017-01-09 21:27] VITALS: BP 161/80
--- NOTE | 2017-01-09 21:31 | NUR ---
REC'D LYING IN BED. ALERT AND ORIENTED X4. DENIED PAIN AT THIS TIME. DENIED NEEDS AT THIS TIME. DAUGHTER IS AT BEDSIDE. IS WANTING TO KNOW WHAT HIS BLD SUGAR WAS BC HE DIDNT GET ANY INSULIN EARLIER AT [employer]. CHECKED IT WAS 131 NO INSULIN WAS REQUIRED. ALSO ASKED QUESTIONS ABOUT THE SOLUMEDROL THAT WAS STARTED TONIGHT, INFORMED THEM OF THE DOCTOR THAT ORDERED IT AND WHAT IT WAS FOR. INSTRUCTED TO CALL IF NEEDED ANYTHING, VERBLAIZED UNDERSTANDING. BED LOW, LOCKED, CALL LIGHT IN REACH.
--- NOTE | 2017-01-09 23:34 | NUR ---
COMPLAING THAT CATHETER WAS LEAKING. GOT UP TO THE BATHROOM CHANGED THE SHEETS. CHECKED CATHETER AND STOPPED AT 8ML ADDED ANOTHER 2ML TO BULB. WILL CONT TO MONITOR TO SEE IF THAT HELPS. BED LOW, LOCKED, CALL LIGHT IN REACH.
[2017-01-10] VITALS: BP 172/85
--- NOTE | 2017-01-10 04:41 | NUR ---
RESTING QUIETLY, EYES CLOSED. RESP EVEN, UNLABORED. NO DISTRESS NOTED. CONTINUE FIRE SPRINKLER INSPECTOR'S PLAN OF CARE.
[2017-01-10 04:51] LABS: BASOPHILS 0 % (0-2); EOSINOPHILS 0 % (0-7); HEMATOCRIT 34.3 % (42.0-54.0); HEMOGLOBIN 11.4 g/dL (13.5-17.5); IMMATURE GRANULOCYTES 1.1 % (0-5); LYMPHOCYTES 5.2 % (15-50); MCH 31.2 pg (26.0-34.0); MCHC 33.2 g/dL (31.0-37.0); MEAN PLATELET VOLUME 10.7 fL (7.4-10.4); MONOCYTES 5.6 % (2-11); NEUTROPHILS 88.1 % (40-80); PLATELET COUNT 163 10x3/uL (130-400); RBC 3.65 10x6/uL (4.20-6.10); RDW 15.3 % (11.5-14.5); WBC 8.2 10x3/uL (4.8-10.8)
[2017-01-10 05:15] LABS: ALBUMIN 2.4 g/dL (3.4-5.0); ANION GAP 14.3 mmol/L (8-16); BILIRUBIN - TOTAL 0.4 mg/dL (0.2-1.3); CALCIUM 7.9 mg/dL (8.5-10.1); CREATININE - SERUM 1.6 mg/dL (0.6-1.3); POTASSIUM - SERUM 3.3 mmol/L (3.5-5.1); PROTEIN - SERUM 5.9 g/dL (6.4-8.2)
[2017-01-10 08:35] VITALS: BP 178/84
--- NOTE | 2017-01-10 11:32 | NUR ---
PT RESTING COMFORTABLY. REPORTS NO PAIN AT THIS TIME. BS 190. 2 UNITS OF HUMULIN REG GIVEN PER SLIDING SCALE. NO OTHER NEEDS AT THIS TIME.
[2017-01-10 12:29] VITALS: BP 143/83
--- NOTE | 2017-01-10 15:17 | NUR ---
JESUS REMOVED PER DR. LOUIS'S ORDERS. CATHETER INTACT. NOTED 700ML OF YELLOW URINE IN BAG. PT DENIES OTHER NEEDS AT THIS TIME.
[2017-01-10 16:35] VITALS: BP 162/72
--- NOTE | 2017-01-10 16:53 | NUR ---
BLOOD SUGAR 169. 2 UNITS OF HUMULIN REG GIVEN PER SLIDING SCALE. PT SITTING IN CHAIR. DENIES OTHER NEEDS AT THIS TIME.
--- NOTE | 2017-01-10 17:21 | NUR ---
PT VOIDED FOR THE FIRST TIME AFTER JESUS REMOVAL. 150ML YELLOW URINE WITH SEDIMENT NOTED. PT SITTING IN CHAIR EATING DINNER. DENIES OTHER NEEDS AT THIS TIME.
[2017-01-10 20:00] VITALS: BP 142/68
--- NOTE | 2017-01-10 20:20 | NUR ---
PATIENT RESTING IN BED WITH GUEST AT BEDSIDE AND DENIES NEEDS AT THIS TIME. BED IN LOWEST POSITION AND CALL LIGHT WITHIN REACH. ENCOURAGED THE PATIENT TO CALL IF HE HAS NEEDS.
[2017-01-11 05:39] VITALS: BP 156/70
[2017-01-11 06:55] LABS: BASOPHILS 0 % (0-2); EOSINOPHILS 0 % (0-7); HEMATOCRIT 28.9 % (42.0-54.0); HEMOGLOBIN 9.8 g/dL (13.5-17.5); IMMATURE GRANULOCYTES 2.1 % (0-5); LYMPHOCYTES 6.9 % (15-50); MCH 31.8 pg (26.0-34.0); MCHC 33.9 g/dL (31.0-37.0); MCV 93.8 fL (80.0-100.0); MEAN PLATELET VOLUME 10.4 fL (7.4-10.4); MONOCYTES 10.1 % (2-11); NEUTROPHILS 80.9 % (40-80); RBC 3.08 10x6/uL (4.20-6.10); RDW 15.5 % (11.5-14.5); WBC 9.4 10x3/uL (4.8-10.8)
[2017-01-11 07:00] LABS: PLATELET COUNT 215 10x3/uL (130-400)
[2017-01-11 07:09] LABS: ALBUMIN 2.4 g/dL (3.4-5.0); ANION GAP 12.1 mmol/L (8-16); BILIRUBIN - TOTAL 0.4 mg/dL (0.2-1.3); CARBON DIOXIDE 24.1 mmol/L (21.0-32.0); CREATININE - SERUM 1.7 mg/dL (0.6-1.3); POTASSIUM - SERUM 3.2 mmol/L (3.5-5.1); PROTEIN - SERUM 5.5 g/dL (6.4-8.2)
[2017-01-11 08:52] VITALS: BP 169/75
--- NOTE | 2017-01-11 09:04 | NUR ---
AM MEDS GIVEN. ELECTROLYTE PROTOCOL FOLLOWED. GAVE 40MEQ KCL PO WITH JUICE. PT TOLERATED WELL. PT DENIES OTHER NEEDS AT THIS TIME.
--- NOTE | 2017-01-11 12:00 | NUR ---
BS 155. 2 UNITS OF HUMULIN REG GIVEN PER SLIDING SCALE. PT AMBULATED TO BATHROOM. FAMILY IN ROOM. DENIES PAIN AT THIS TIME. WILL CONTINUE TO MONITOR.
[2017-01-11 12:52] VITALS: BP 169/76
[2017-01-11 16:38] VITALS: BP 149/89
--- NOTE | 2017-01-11 17:01 | NUR ---
BS 191. 2 UNITS OF HUMULIN REG GIVEN ON RIGHT ARM PER SLIDING SCALE. PT REPORT NO PAIN AT THIS TIME. WILL CONTINUE TO MONITOR.
--- NOTE | 2017-01-11 19:55 | NUR ---
PATIENT RESTING IN BED WITH DAUGHTER AT BEDSIDE AND DENIES NEEDS AT THIS TIME. BED IN LOWEST POSITION AND CALL LIGHT WITHIN REACH. ENCOURAGED PATIENT TO CALL IF HE HAS NEEDS.
[2017-01-12 04:00] VITALS: BP 145/65
--- NOTE | 2017-01-12 08:00 | NUR ---
ASSESSMENT PER FLOW SHEET.,PT WITHUT DISTRESS.FAMILY AT BEDSIDE.CALL LIGHT IN REACH
[2017-01-12 08:54] VITALS: BP 140/79
[2017-01-12 11:08] LABS: BASOPHILS 0.1 % (0-2); EOSINOPHILS 0.4 % (0-7); IMMATURE GRANULOCYTES 2.6 % (0-5); LYMPHOCYTES 10.4 % (15-50); MCH 31.6 pg (26.0-34.0); MCHC 33.5 g/dL (31.0-37.0); MCV 94.3 fL (80.0-100.0); MONOCYTES 13.1 % (2-11); NEUTROPHILS 73.4 % (40-80); RDW 15.2 % (11.5-14.5); WBC 9.7 10x3/uL (4.8-10.8)
[2017-01-12 11:12] LABS: HEMATOCRIT 36.1 % (42.0-54.0); HEMOGLOBIN 12.1 g/dL (13.5-17.5); PLATELET COUNT 283 10x3/uL (130-400); RBC 3.83 10x6/uL (4.20-6.10)
[2017-01-12 13:04] VITALS: BP 189/98
--- NOTE | 2017-01-12 14:03 | NUR ---
NUTRITION F/U CHART REVIEWED, PT VISIT. PT WITH 25 TO 75% INTAKE RECENT MEALS. WILL CONTINUE TO PROVIDE CURRENT DIET, MONITOR INTAKE. RD FOLLOWING
--- NOTE | 2017-01-12 14:53 | NUR ---
CM REASSESSMENT NOTE: PATIENT IS DISCHARGING HOME TODAY. PATIENT WANTS TO SET UP HIS PHYSICAL THERAPY HIMSELF. PRESCRIPTION WAS GIVEN TO HIM. IMM SERVED AND FAMILY IS DRIVING HIM HOME.
--- NOTE | 2017-01-12 18:12 | NUR ---
FAMILY REMAINS AT BEDSIDE.PT IS WITHOUT DISTRESS.WITHOUT CHANGE FROM INITIAL ASSESSMENT.CONT PLAN OF CARE
[2017-01-12 20:00] VITALS: BP 165/94
--- NOTE | 2017-01-12 23:00 | NUR ---
PT AND FAMILY MEMBER REFUSED CVL DRESSING CHANGE AT THIS TIME STATING "IT IS TOO LATE FOR THAT NOW, WE DO NOT WANT TO BE DISTURBED". EXPLAINED THE IMPORTANCE OF DRESSING CHANGE, YET STILL REFUSED AT THIS TIME AND REQUESTED TO WAIT UNTIL THE MORNING.
--- NOTE | 2017-01-12 23:33 | NUR ---
CURTIS OBANDO ADMINISTERED AT THIS TIME.
[2017-01-13 04:00] VITALS: BP 149/86
[2017-01-13 06:41] LABS: BASOPHILS 0.1 % (0-2); EOSINOPHILS 0.4 % (0-7); HEMATOCRIT 32.6 % (42.0-54.0); HEMOGLOBIN 10.9 g/dL (13.5-17.5); IMMATURE GRANULOCYTES 1.8 % (0-5); LYMPHOCYTES 11.5 % (15-50); MCH 31.3 pg (26.0-34.0); MCHC 33.4 g/dL (31.0-37.0); MCV 93.7 fL (80.0-100.0); MONOCYTES 9.4 % (2-11); NEUTROPHILS 76.8 % (40-80); PLATELET COUNT 266 10x3/uL (130-400); RBC 3.48 10x6/uL (4.20-6.10); RDW 15.1 % (11.5-14.5); WBC 9.4 10x3/uL (4.8-10.8)
--- NOTE | 2017-01-13 07:10 | NUR ---
CM REASSESSMENT NOTE: PATIENT DID NOT D/C YESTERDAY. BLOOD CLOTS WERE FOUND IN HIS ARM.
[2017-01-13 07:13] LABS: ALBUMIN 2.3 g/dL (3.4-5.0); ANION GAP 12.9 mmol/L (8-16); BILIRUBIN - TOTAL 0.41 mg/dL (0.2-1.3); CALCIUM 8.2 mg/dL (8.5-10.1); CARBON DIOXIDE 24.2 mmol/L (21.0-32.0); CREATININE - SERUM 1.4 mg/dL (0.6-1.3); POTASSIUM - SERUM 3.1 mmol/L (3.5-5.1); PROTEIN - SERUM 5.3 g/dL (6.4-8.2)
--- NOTE | 2017-01-13 08:30 | NUR ---
ASSESSMENT PER FLOW SHEET.PT WITHOUT DISTRESS.CALL LIGHT IN REACH
[2017-01-13 08:32] VITALS: BP 170/93
[2017-01-13] MEDS ORDERED: VANCOMYCIN250 MG/51 PO (10:12)
[2017-01-13] MEDS ORDERED: K-DUR20 MEQ PO (10:13)
[2017-01-13] MEDS ORDERED: FLORAJEN3 CAPS460 MG PO (10:13)
[2017-01-13] MEDS ORDERED: CARAFATE1 G/10 ML PO (10:13)
[2017-01-13] MEDS ORDERED: PREDNISONE10 MG PO (10:14)
[2017-01-13] MEDS ORDERED: LASIX20 MG PO (10:15)
[2017-01-13] MEDS ORDERED: PROTONIX40 MG PO (10:16)
[2017-01-13] MEDS ORDERED: VENTOLIN HFA18 GM INH (10:17)
[2017-01-13] MEDS ORDERED: LEVAQUIN500 MG PO (10:17)
--- NOTE | 2017-01-13 11:31 | NUR ---
CVL DCD WITH CATH TIP INTCACT. FLU VACCINE ORDERED IN RIGHT DELTOID. PT TOLERATED WELL.DISCHARGE INSTRUCTIONS,STATES UNDERSTANDING.FAMILY AT BEDSIDE.
--- NOTE | 2017-01-13 11:42 | NUR ---
LEFT UNIT VIA WHEELCHAIR
--- NOTE | 2017-01-13 12:57 | NUR ---
LATE ENTRY: PATIENT D/C TODAY/FAMILY DRIVING. PATIENT IS SETTING UP OP PHYSICAL THERAPY HIMSELF (DAUGHTER HELPING HIM). PATIENT REFUSED HOME HEALTH AND HAD NO OTHER NEEDS FOR DISCHARGE.
== END 2017-01-13 11:42 | disposition home or self-care (01) | DRG 377 ==
LOC: D.ER 09:51 → D.MS 11:30 → D.ICU 11:30 → D.MS 01-07 19:10 → D.SDCHOLD 01-11 17:49 → D.MS 01-11 17:56
PROVIDERS: Emergency Medicine; Family Medicine; Internal Medicine Gastroenterology; Internal Medicine Pulmonary Disease; ADMIT Family Medicine
PROC: 5A12012 Performance of Cardiac Output, Single, Manual (ICD-10-PCS; 2017-01-04)
PROC: 0BH17EZ Insertion of Endotracheal Airway into Trachea, Via Natural or Artificial Opening (ICD-10-PCS; 2017-01-04)
PROC: 5A1945Z Respiratory Ventilation, 24-96 Consecutive Hours (ICD-10-PCS; 2017-01-04)
PROC: 3E0G8GC Introduction of Other Therapeutic Substance into Upper GI, Via Natural or Artificial Opening Endoscopic (ICD-10-PCS; 2017-01-04)
PROC: 0W3P8ZZ Control Bleeding in Gastrointestinal Tract, Via Natural or Artificial Opening Endoscopic (ICD-10-PCS; 2017-01-04)
PROC: 02HV33Z Insertion of Infusion Device into Superior Vena Cava, Percutaneous Approach (ICD-10-PCS; principal; 2017-01-04 14:57)
DX: K26.0 Acute duodenal ulcer with hemorrhage (principal); R57.1 Hypovolemic shock; J69.0 Pneumonitis due to inhalation of food and vomit; J96.90 Respiratory failure, unspecified, unspecified whether with hypoxia or hypercapnia; J15.6 Pneumonia due to other Gram-negative bacteria; J15.0 Pneumonia due to Klebsiella pneumoniae; N17.9 Acute kidney failure, unspecified; D62 Acute posthemorrhagic anemia; E87.0 Hyperosmolality and hypernatremia; D68.9 Coagulation defect, unspecified; J90 Pleural effusion, not elsewhere classified; E87.2 Acidosis; J98.11 Atelectasis; I97.121 Postprocedural cardiac arrest following other surgery; A04.72 Enterocolitis due to Clostridium difficile, not specified as recurrent; E87.5 Hyperkalemia; Z86.718 Personal history of other venous thrombosis and embolism; R73.9 Hyperglycemia, unspecified; Z87.891 Personal history of nicotine dependence; K57.90 Diverticulosis of intestine, part unspecified, without perforation or abscess without bleeding; Z78.1 Physical restraint status; E83.42 Hypomagnesemia; J44.9 Chronic obstructive pulmonary disease, unspecified; B96.1 Klebsiella pneumoniae [K. pneumoniae] as the cause of diseases classified elsewhere; M1A.9XX1 Chronic gout, unspecified, with tophus (tophi); I12.9 Hypertensive chronic kidney disease with stage 1 through stage 4 chronic kidney disease, or unspecified chronic kidney disease; N18.9 Chronic kidney disease, unspecified; K64.9 Unspecified hemorrhoids

== ENCOUNTER → 2017-06-09 11:37 | Outpatient (CLI) | payer MEDICARE, OTHER ==
[2017-01-05 12:41] VITALS: BMI 29.8
[~2017-06-09 11:37] MED LIST: AMBIEN10 MG; AVODART0.5 MG PO; BACTROBAN NASAL1 GM TOPICAL; CARAFATE1 G/10 ML PO; CIMETIDINE200 MG PO; DIOVAN160 MG; FLORAJEN3 CAPS460 MG PO; K-DUR20 MEQ PO; LASIX20 MG PO; LEVAQUIN500 MG PO; LIPITOR80 MG; MOBIC7.5 MG PO; PRADAXA150 MG; PREDNISONE10 MG PO; PROTONIX40 MG PO; TOPROL XL100 MG; VANCOMYCIN250 MG/51 PO; VENTOLIN HFA18 GM INH
[2017-06-09 12:15] LABS: BASOPHILS 0.5 % (0-2); EOSINOPHILS 3.5 % (0-7); HEMATOCRIT 40.7 % (42.0-54.0); HEMOGLOBIN 13.9 g/dL (13.5-17.5); IMMATURE GRANULOCYTES 0.5 % (0-5); LYMPHOCYTES 23.3 % (15-50); MCH 33.3 pg (26.0-34.0); MCHC 34.2 g/dL (31.0-37.0); MCV 97.4 fL (80.0-100.0); MEAN PLATELET VOLUME 10.4 fL (7.4-10.4); NEUTROPHILS 58.2 % (40-80); PLATELET COUNT 236 10x3/uL (130-400); RBC 4.18 10x6/uL (4.20-6.10)
[2017-06-14 06:13] LABS: OVA + PARASITE EXAM Final report (())
== END | disposition home or self-care (01) ==
LOC: D.LAB 11:37
PROVIDERS: Internal Medicine Gastroenterology
DX: Z87.19 Personal history of other diseases of the digestive system (principal); R19.7 Diarrhea, unspecified

== ENCOUNTER → 2019-01-24 14:08 | Outpatient (CLI) | payer MEDICARE, OTHER ==
[2017-01-05 12:41] VITALS: BMI 29.8
== END | disposition home or self-care (01) ==
LOC: D.LAB 14:08
PROVIDERS: ATTEND Internal Medicine Nephrology
DX: M10.9 Gout, unspecified (principal)